=== PATIENT | male | born 1940 | race Hispanic/Latino ===

== ENCOUNTER 2017-08-05 12:17 | Outpatient (CLI) | payer MEDICARE ==
--- NOTE | 2017-08-09 11:31 | Vascular Lab Report ---
LOWER EXTREMITY ARTERIAL DUPLEX: REASON FOR EXAM: Peripheral arterial disease. COMMENTS ON THE RIGHT: Monophasic waveforms are seen proximally. Monophasic waveforms are seen distally. Overall low flow velocity noted throughout extremities. No focal significant plaque is identified. Findings are consistent with abnormal perfusion. Findings are inconsistent with the ability to heal distal wounds. COMMENTS ON THE LEFT: Monophasic waveforms are seen proximally. Monophasic waveforms are seen distally. No flow noted in the mid SFA.. Plaque noted in the SFA.. Findings are consistent with abnormal perfusion. Findings are inconsistent with the ability to heal distal wounds. IMPRESSION: RIGHT: Abnormal perfusion indicating inflow disease.. LEFT:Inflow disease and occluded SFA..
== END 2017-08-05 12:18 | disposition home or self-care (01) ==
LOC: VAS 12:17
PROVIDERS: ATTEND Urology
DX: I70.202 Unspecified atherosclerosis of native arteries of extremities, left leg (principal); R35.0 Frequency of micturition
CPT/HCPCS: 93925